=== PATIENT | male | born 1950 | race Caucasian/White ===

== ENCOUNTER 2022-01-03 12:58 | Inpatient (IN) | payer MEDICARE ==
[~2022-01-03] VITALS: Ht 193 cm; Wt 101.9 kg
[2022-01-03 13:37] LABS: BASOPHILS ABSOLUTE AUTO 0.06 K/mm3 (0.00-0.23); BASOPHILS PERCENT AUTO 1 % (0-2); EOSINOPHILS ABSOLUTE AUTO 0.15 K/mm3 (0.00-0.68); EOSINOPHILS PERCENT AUTO 2 % (0-6); Hematocrit 42.5 % (37.0-53.0); Hemoglobin 14.4 g/dL (13.5-17.5); IMMATURE GRAN ABSOLUTE AUTO 0.02 K/mm3 (0.00-0.10); IMMATURE GRAN PERCENT AUTO 0 % (0-1); LYMPHOCYTES ABSOLUTE AUTO 1.77 K/mm3 (0.84-5.20); LYMPHOCYTES PERCENT AUTO 28 % (21-46); MONOCYTES ABSOLUTE AUTO 0.62 K/mm3 (0.16-1.47); MONOCYTES PERCENT AUTO 10 % (4-13); Mean Corpuscular HGB 30.5 pg (26.0-34.0); Mean Corpuscular HGB Conc 33.9 g/dL (31.5-36.5); Mean Corpuscular Volume 90 fL (80-100); Mean Platelet Volume 10.1 fL (9.1-12.4); NEUTROPHILS ABSOLUTE AUTO 3.82 K/mm3 (1.96-9.15); NEUTROPHILS PERCENT AUTO 59 % (41-73); Platelet Count 240 K/mm3 (150-400); RDW Coefficient Variation 14.2 % (11.7-14.2); RDW Standard Deviation 47.3 fL (35.1-46.3); Red Blood Cell Count 4.72 M/mm3 (4.30-5.90); White Blood Cell Count 6.44 K/mm3 (4.00-11.30)
[2022-01-03 14:07] LABS: Alanine Aminotransfer (ALT/SGP 25 U/L (12-78); Albumin, Blood 3.6 g/dL (3.4-5.0); Albumin/Globulin Ratio 1.1 (0.8-1.8); Alk Phos 57 U/L (50-136); Anion Gap 7 mmol/L (6-16); Aspartate Aminotrans (AST/SGOT 16 U/L (12-37); Bilirubin, Total 0.6 mg/dL (0.1-1.0); Blood Urea Nitrogen 18 mg/dL (8-24); Bun/Creatinine Ratio 22.6 (12.0-20.0); CO2, Blood 25 mmol/L (21-32); Chloride, Blood 111 mmol/L (98-108); Globulin, Blood 3.4 g/dL (2.2-4.0); Glomerular Filtration Rate >60 (60-); Glucose, Blood 102 mg/dL (70-99); Potassium, Blood 4.1 mmol/L (3.5-5.5); Sodium, Blood 143 mmol/L (136-145)
[2022-01-03 17:53] LABS: Anti-Xa UFH, PHA Monitoring <0.10 IU/mL; International Normalized Ratio 0.99; Prothrombin Time Results 10.4 Sec (9.7-11.5)
[2022-01-05 05:46] LABS: CHOL/HDL RATIO 3.7; Cholesterol 238 mg/dL (50-200); HDL Cholesterol 64 mg/dL (>39); LDL/HDL RATIO 2.5; Low Density Lipoprotein Chol 160 mg/dL (0-110); Triglycerides 69 mg/dL (30-160); Very Low Density Lipoprot Chol 13 mg/dL (6-32)
[2022-01-07 04:34] LABS: Hematocrit 38.8 % (37.0-53.0); Hemoglobin 13.2 g/dL (13.5-17.5); Mean Corpuscular HGB 30.5 pg (26.0-34.0); Mean Corpuscular Volume 90 fL (80-100); Mean Platelet Volume 10.5 fL (9.1-12.4); Platelet Count 205 K/mm3 (150-400); RDW Standard Deviation 46.5 fL (35.1-46.3); Red Blood Cell Count 4.33 M/mm3 (4.30-5.90); White Blood Cell Count 7.13 K/mm3 (4.00-11.30)
[2022-01-07 04:50] LABS: Anion Gap 5 mmol/L (6-16); Blood Urea Nitrogen 16 mg/dL (8-24); Bun/Creatinine Ratio 18.4 (12.0-20.0); CO2, Blood 24 mmol/L (21-32); Calcium, Blood 8.4 mg/dL (8.5-10.1); Chloride, Blood 114 mmol/L (98-108); Creatinine, Blood 0.87 mg/dL (0.60-1.20); Glomerular Filtration Rate >60 (60-); Glucose, Blood 99 mg/dL (70-99); Potassium, Blood 3.7 mmol/L (3.5-5.5); Sodium, Blood 143 mmol/L (136-145)
[2022-01-07] MEDS ORDERED: ASPI81CH PO (09:38)
[2022-01-07] MEDS ORDERED: ATOR80 PO (09:38)
[2022-01-07] MEDS ORDERED: CLOP75 PO (09:39)
[2022-01-07] MEDS ORDERED: MIRALAX17 GM PO (09:39)
[2022-01-07] MEDS ORDERED: METO25ER PO (09:39)
== END 2022-01-07 10:19 | disposition home or self-care (01) | DRG 247 ==
LOC: ER 12:58 → PCU 12:59
PROVIDERS: Internal Medicine; Internal Medicine Cardiovascular Disease; Physician Assistant; ADMIT Internal Medicine
PROC: 027135Z Dilation of Coronary Artery, Two Arteries with Two Drug-eluting Intraluminal Devices, Percutaneous Approach (ICD-10-PCS; principal; 2022-01-06)
PROC: 4A023N7 Measurement of Cardiac Sampling and Pressure, Left Heart, Percutaneous Approach (ICD-10-PCS; 2022-01-06)
PROC: B2111ZZ Fluoroscopy of Multiple Coronary Arteries using Low Osmolar Contrast (ICD-10-PCS; 2022-01-06)
DX: I25.110 Atherosclerotic heart disease of native coronary artery with unstable angina pectoris (principal); I10 Essential (primary) hypertension; E78.5 Hyperlipidemia, unspecified; I35.0 Nonrheumatic aortic (valve) stenosis
CPT/HCPCS: 36415; 71045; 78452; 80048; 80053; 80061; 84484; 85025; 85027; 85347; 85520; 85610; 85730; 93005; 93010; 93017; 93306; 93458; 99152; 99153; 99285-25; A9270; A9500; C1725; C1769; C1874; C1887; C1894; C9600; C9601; J1644; J1650; J2250; J2785; J3010; J7030; J7040; Q9967

== ENCOUNTER 2025-05-15 00:06 | Observation (INO) | payer OTHER ==
[~2025-05-15] VITALS: Ht 195.6 cm; Wt 108.3 kg
[~2025-05-15 00:06] MED LIST: ASPI81CH PO; ATOR80 PO; CLOP75 PO; METO25ER PO; MIRALAX17 GM PO
[2025-05-15] MEDS ORDERED: NS 1,000 ML IV SCH ×2 (01:40→06:00)
[2025-05-15 01:46] LABS: BASOPHILS ABSOLUTE AUTO 0.05 K/mm3 (0.00-0.23); BASOPHILS PERCENT AUTO 1 % (0-2); EOSINOPHILS ABSOLUTE AUTO 0.42 K/mm3 (0.00-0.68); EOSINOPHILS PERCENT AUTO 6 % (0-6); Hematocrit 38.4 % (37.0-53.0); Hemoglobin 13.0 g/dL (13.5-17.5); IMMATURE GRAN ABSOLUTE AUTO 0.02 K/mm3 (0.00-0.10); IMMATURE GRAN PERCENT AUTO 0 % (0-1); LYMPHOCYTES ABSOLUTE AUTO 1.84 K/mm3 (0.84-5.20); LYMPHOCYTES PERCENT AUTO 26 % (21-46); MONOCYTES ABSOLUTE AUTO 0.71 K/mm3 (0.16-1.47); MONOCYTES PERCENT AUTO 10 % (4-13); Mean Corpuscular HGB Conc 33.9 g/dL (31.5-36.5); Mean Corpuscular Volume 89 fL (80-100); NEUTROPHILS ABSOLUTE AUTO 4.09 K/mm3 (1.96-9.15); NEUTROPHILS PERCENT AUTO 57 % (41-73); NRBC ABSOLUTE 0.00 K/mm3 (0.00-0.02); NRBC Auto 0.0 /100 WBC (0.0-0.2); Platelet Count 208 K/mm3 (150-400); RDW Coefficient Variation 13.8 % (11.7-14.2); RDW Standard Deviation 44.6 fL (35.1-46.3)
[2025-05-15 02:08] LABS: Alanine Aminotransfer (ALT/SGP 29.0 U/L (12-78); Albumin, Blood 3.5 g/dL (3.4-5.0); Albumin/Globulin Ratio 1.1 (0.8-1.8); Anion Gap 7.0 mmol/L (3-11); Aspartate Aminotrans (AST/SGOT 24.0 U/L (12-37); Bilirubin, Total 0.4 mg/dL (0.1-1.0); Blood Urea Nitrogen 21.0 mg/dL (8-24); CO2, Blood 24.0 mmol/L (21-32); Calcium, Blood 8.9 mg/dL (8.5-10.1); Chloride, Blood 113.0 mmol/L (98-108); Creatinine, Blood 0.82 mg/dL (0.60-1.20); Globulin, Blood 3.3 g/dL (2.2-4.0); Glucose, Blood 104.0 mg/dL (70-99); Magnesium, Blood 2.2 mg/dL (1.6-2.4); Phosphorus, Blood 2.7 mg/dL (2.5-4.9); Potassium, Blood 3.9 mmol/L (3.5-5.5); Sodium, Blood 140.0 mmol/L (136-145); Thyroid Stimulating Hormone 1.99 uIU/mL (0.360-4.800); Total Protein, Blood 6.8 g/dL (6.4-8.2)
[2025-05-15 03:18] LABS: Source, Urine Clean Catch
[2025-05-15 03:26] LABS: Bilirubin, Urine Neg (Neg); Glucose Qualitative, Urine Neg (Neg); Ketones, Urine Neg (Neg); Leukocyte Esterase, Urine Neg (Neg); Protein, Urine Neg (Neg); Specific Gravity, Urine 1.015 (1.003-1.022); Urobilinogen, Urine NORM (Normal)
[2025-05-15 03:27] LABS: Color, Urine Yellow (P-Yellow)
[2025-05-15 04:00] LABS: Prothrombin Time Results 11.1 Sec (9.7-11.5)
[2025-05-15] MEDS ORDERED: Diltiazem HCl 5 MG / ML 5ML Vial IV ONE (04:20)
[2025-05-15] MEDS ORDERED: Ondansetron HCl 2 MG / ML 2ML Vial IV PRN (05:10)
[2025-05-15] MEDS ORDERED: PNEUMOC 20-VAL CONJ-DIP CRM/PF 0.5 ML SYRINGE IM ONE (05:10)
[2025-05-15 05:28] LABS: CHOL/HDL RATIO 1.9; Cholesterol 128 mg/dL (50-200); HDL Cholesterol 68 mg/dL (>39); LDL/HDL RATIO 0.7; Low Density Lipoprotein Chol 51 mg/dL (0-110); Triglycerides 47 mg/dL (30-160); Very Low Density Lipoprot Chol 9 mg/dL (6-32)
[2025-05-15] MEDS ORDERED: EZET10 PO (06:25)
[2025-05-15] MEDS ORDERED: ROSUVASTATIN CA10 MG PO (06:26)
[2025-05-15] MEDS ORDERED: Polyethylene Glycol 3350 17 gm PO PRN (09:25)
[2025-05-15] MEDS ORDERED: FentaNYL Citrate 50 MCG/ML 2 ML Injection IV ONE (12:40)
[2025-05-15 13:12] VITALS: BP 99/73
[2025-05-15 16:12] VITALS: BP 105/72
--- NOTE | 2025-05-15 17:51 | NUR ---
SHIFT SUMMARY; PT [id number]&OX4. FOLLOWS COMMANDS AND MAKES NEEDS KNOWNN TO STAFF. PT HAS BEEN ABLE TO GET TO THE THE BATHROOM INDEPENDENTLY AND WAS ABLE TO TALK A WALK AROUND THE UNIT WITH WITHOUT ANY COMPLAINTS OF CP, PRESSURE, TIGHTNESS OR SOB. BLOOD PRESSURE HAS BEEN BETTER SINCE ARRIVAL. PT WAS STARTED ON DIG AND HIS HR IS BETTER AT REST BUT IS STILL INCREASING TO THE 110'S-120'S WITH EXERTION. NO SIGNIFICANT EVENTS HAVE HAPPENED SINCE ARRIVAL TO THIS UNIT. WILL CONTINUE TO CARE FOR PT TILL END OF SHIFT.
[2025-05-15 19:54] VITALS: BP 96/60
[2025-05-16 00:28] VITALS: BP 123/60
[2025-05-16 03:46] VITALS: BP 138/66
[2025-05-16 04:10] LABS: BASOPHILS ABSOLUTE AUTO 0.06 K/mm3 (0.00-0.23); BASOPHILS PERCENT AUTO 1 % (0-2); EOSINOPHILS ABSOLUTE AUTO 0.28 K/mm3 (0.00-0.68); EOSINOPHILS PERCENT AUTO 4 % (0-6); Hematocrit 37.1 % (37.0-53.0); Hemoglobin 12.3 g/dL (13.5-17.5); IMMATURE GRAN ABSOLUTE AUTO 0.04 K/mm3 (0.00-0.10); IMMATURE GRAN PERCENT AUTO 1 % (0-1); LYMPHOCYTES ABSOLUTE AUTO 1.78 K/mm3 (0.84-5.20); LYMPHOCYTES PERCENT AUTO 26 % (21-46); MONOCYTES ABSOLUTE AUTO 0.70 K/mm3 (0.16-1.47); MONOCYTES PERCENT AUTO 10 % (4-13); Mean Corpuscular HGB Conc 33.2 g/dL (31.5-36.5); Mean Corpuscular Volume 91 fL (80-100); NEUTROPHILS ABSOLUTE AUTO 4.03 K/mm3 (1.96-9.15); NEUTROPHILS PERCENT AUTO 58 % (41-73); NRBC ABSOLUTE 0.00 K/mm3 (0.00-0.02); NRBC Auto 0.0 /100 WBC (0.0-0.2); Platelet Count 190 K/mm3 (150-400); RDW Coefficient Variation 14.1 % (11.7-14.2); RDW Standard Deviation 47.1 fL (35.1-46.3)
[2025-05-16 04:25] LABS: Prothrombin Time Results 11.8 Sec (9.7-11.5)
[2025-05-16 04:29] LABS: Alanine Aminotransfer (ALT/SGP 27.0 U/L (12-78); Albumin, Blood 2.9 g/dL (3.4-5.0); Albumin/Globulin Ratio 1.1 (0.8-1.8); Anion Gap 11.0 mmol/L (3-11); Aspartate Aminotrans (AST/SGOT 22.0 U/L (12-37); Bilirubin, Total 0.5 mg/dL (0.1-1.0); Blood Urea Nitrogen 19.0 mg/dL (8-24); CO2, Blood 22.0 mmol/L (21-32); Calcium, Blood 8.5 mg/dL (8.5-10.1); Chloride, Blood 112.0 mmol/L (98-108); Creatinine, Blood 0.94 mg/dL (0.60-1.20); Globulin, Blood 2.7 g/dL (2.2-4.0); Glucose, Blood 95.0 mg/dL (70-99); Potassium, Blood 3.9 mmol/L (3.5-5.5); Sodium, Blood 141.0 mmol/L (136-145); Total Protein, Blood 5.6 g/dL (6.4-8.2)
[2025-05-16] MEDS ORDERED: Saline Nasal Spray 45 ML PRN (06:00)
[2025-05-16] MEDS ORDERED: Saline Nasal Spray 45 ML ONE (06:00)
[2025-05-16 08:42] VITALS: BP 134/63
[2025-05-16 13:12] VITALS: BP 132/81
[2025-05-16] MEDS ORDERED: ELIQUIS5 M2 PO (14:37)
[2025-05-16] MEDS ORDERED: DIGOX125 MC1 PO (14:37)
[2025-05-16] MEDS ORDERED: METO25 PO (14:39)
--- NOTE | 2025-05-16 16:30 | NUR ---
SHIFT SUMMARY/ DISCHARGE NOTE: PT DISCHARGED TO HOME IN NO ACUTE STRESS AT THIS TIME. THIS RN WENT OVER WRITTEN AND VERBAL DC INSTRUCTIONS AND WAS INSTRUCTED TO COME BACK TO THIS FACILITY IF SYMPTOMS COME BACK. IV WAS REMOVED WITH CATHETER INTACT. WA DENIES ANY QUESTIONS OR CONCERNS AT THIS TIME. NO SIGNIFICANT EVENTS HAPPENED DURING THIS SHIFT. PT REMAINED FREE OF ANY CP, PRESSURE, TIGHTNESS OR SOB. DENIES ANY COMPLAINTS.
== END 2025-05-16 16:45 | disposition home or self-care (01) ==
LOC: ER 00:06 → PCU 00:07 → ERHOLD 05:06 → ER 05:06 → PCU 05:06 → ERHOLD 11:35 → PCU 11:35
PROVIDERS: Emergency Medicine; Student in an Organized Health Care Education/Training Program; ADMIT Internal Medicine
DX: I48.91 Unspecified atrial fibrillation (principal); I35.0 Nonrheumatic aortic (valve) stenosis; E78.5 Hyperlipidemia, unspecified; I95.9 Hypotension, unspecified; J30.1 Allergic rhinitis due to pollen; Z79.02 Long term (current) use of antithrombotics/antiplatelets; Z79.82 Long term (current) use of aspirin; Z79.899 Other long term (current) drug therapy; Z95.2 Presence of prosthetic heart valve; Z95.5 Presence of coronary angioplasty implant and graft
CPT/HCPCS: 36415; 71046; 80053; 80061; 81003; 83036; 83735; 83880; 84100; 84443; 84484; 85025; 85610; 85730; 93005; 93010; 94762; 96361; 96374; 99285-25; A9270; C8929; G0378; J7030; Q9957